=== PATIENT | male | born 1985 | race Caucasian/White ===

== ENCOUNTER 2016-04-27 17:38 | Emergency (ER) | payer OTHER ==
[~2016-04-27] VITALS: Ht 185.4 cm; Wt 111.4 kg
[2016-04-27 17:47] VITALS: BP 155/107; PULSE 95; RESP 16; O2SAT 96
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
== END 2016-04-27 19:37 ==
LOC: SED 17:38
DX: S81.841A Puncture wound with foreign body, right lower leg, initial encounter (principal); W34.00XA Accidental discharge from unspecified firearms or gun, initial encounter; Y92.9 Unspecified place or not applicable; Y93.89 Activity, other specified; Y99.8 Other external cause status; R20.2 Paresthesia of skin; F17.200 Nicotine dependence, unspecified, uncomplicated; Z86.711 Personal history of pulmonary embolism